=== PATIENT | male | born 1995 | race Caucasian/White ===

== ENCOUNTER 2020-07-25 09:19 | Day surgery (SDC) | payer OTHER ==
[2020-07-25] MEDS ORDERED: ceFAZolin 2 GM/50 ML 2 GM/50 ML BAG IV ONE (09:25)
[2020-07-25] MEDS ORDERED: LACTATED RINGERS 1,000 ML IV ONE ×2 (09:27→11:54)
[2020-07-25] MEDS ORDERED: EPINEPHrine 1 MG/ML AMP ONE (09:39)
[2020-07-25] MEDS ORDERED: BUPIVACAINE 0.25% PF 10 ML VIAL ONE (09:39)
[2020-07-25] MEDS ORDERED: LIDOCAINE-MPF 2% 5 ML VIAL ONE (09:45)
[2020-07-25] MEDS ORDERED: PROPOFOL 200 MG/20 ML VIAL IVP ONE (09:45)
[2020-07-25] MEDS ORDERED: DEXAMETHASONE 4 MG/ML VIAL ONE (09:48)
[2020-07-25] MEDS ORDERED: KETOROLAC 30 MG/ML VIAL ONE (09:48)
[2020-07-25] MEDS ORDERED: ONDANSETRON 4 MG/2 ML VIAL ONE (09:48)
--- NOTE | 2020-07-25 10:02 | ANESTHESIA ---
Pre-Anesthesia VS, & Labs - Diagnosis left knee meniscus tear - Procedure Left knee arthroscopy Vital Signs: Temp Pulse Resp BP Pulse Ox 36.8 C 51 L 14 129/73 99 07/25/20 09:40 07/25/20 09:40 07/25/20 09:40 07/25/20 09:40 07/25/20 09:40 Height: 5 ft 8 in Weight (kg): 91.6 kg Body Mass Index: 30.7 BMI Classification: Obese - NPO >8 hours - Lab Results Lab results reviewed: Yes Home Medications and Allergies Home Medications: Ambulatory Orders No Known Home Medications 07/19/20 No Known Home Medications 07/19/20 Allergies/Adverse Reactions: Allergies Allergy/AdvReac Type Severity Reaction Status Date / Time No Known Drug Allergies Allergy Verified 07/19/20 16:18 Anes History & Medical History - Anesthetic History Anesthesia Complications: reports: No previous complications Family history of Anesthesia Complications: Denies Family history of Malignant Hyperthermia: Denies - Medical History Cardiovascular: reports: None Pulmonary: reports: None Gastrointestinal: reports: None Urinary: reports: None Musculoskeletal: reports: Other Endocrine/Autoimmune: reports: None Skin: reports: None Smoking Status: Former smoker (quit vaping 2 months ago, quit smoking 6 months ago) Exam General: Alert, Oriented x3, Cooperative, No acute distress Dental: WNL, Other (some chipped teeth) Mouth and Teeth Image: 1 - chipped Mouth Openin Fingerbreadth Neck Mobility: Normal Mallampati classification: I Respiratory: Lungs clear, Normal breath sounds, No respiratory distress, No accessory muscle use Cardiovascular: Regular rate, Normal S1, Normal S2, No murmurs Plan Anesthesia Type: General Consent for Procedure(s) Verified and Reviewed: No Code Status: Attempt Resuscitation ASA classification: 1-Healthy patient Is this case an emergency?: No
[2020-07-25] MEDS ORDERED: MIDAZOLAM 2 MG/2 ML VIAL ONE (10:24)
[2020-07-25] MEDS ORDERED: fentaNYL 100 MCG/2 ML VIAL ONE (10:25)
[2020-07-25] MEDS ORDERED: BUPIVACAINE 0.25% PF 10 ML VIAL SUBQ ONE ×2 (10:52)
[2020-07-25] MEDS ORDERED: EPINEPHrine 1 MG/ML AMP IR ONE (10:52)
[2020-07-25] MEDS ORDERED: HYDROmorphone 0.5 MG/0.5 ML SYRINGE IVP PRN (11:12)
[2020-07-25] MEDS ORDERED: MORPHINE 2 MG/ML CARPUJECT IVP PRN (11:12)
[2020-07-25] MEDS ORDERED: ONDANSETRON 4 MG/2 ML VIAL IVP PRN ×2 (11:12→11:51)
[2020-07-25] MEDS ORDERED: METOCLOPRAMIDE 10 MG/2 ML VIAL IVP PRN (11:12)
[2020-07-25] MEDS ORDERED: ePHEDrine 50 MG/ML VIAL IVP PRN (11:12)
[2020-07-25] MEDS ORDERED: ATROPINE ABBOJECT 1 MG/10 ML SYRINGE IVP PRN (11:12)
[2020-07-25] MEDS ORDERED: NALOXONE 0.4 MG/ML VIAL IVP PRN (11:12)
[2020-07-25] MEDS ORDERED: fentaNYL 100 MCG/2 ML VIAL IVP PRN (11:12)
[2020-07-25] MEDS ORDERED: oxyCODONE 5 MG TABLET PO PRN (11:51)
[2020-07-25] MEDS ORDERED: LACTATED RINGERS 1,000 ML IV SCH (12:00)
--- NOTE | 2020-07-25 12:03 | OPERATIVE REPORT ---
Operative Report - Other Other Information/Narrative: Date of Surgery: 25 July 2020 Pre-Op Diagnosis: Left knee lateral meniscus tear Procedure: Left knee lateral meniscus debridement. Lateral femoral condyle chondroplasty. Lateral tibial plateau chondroplasty Postop Diagnosis: Left lateral meniscus tear -irrepairable, lateral femoral condyle cartilage lesion, lateral tibial plateau cartilage lesion Primary Surgeon: Jesse Jarvis Secondary Surgeon: None Complications: None Tourniquet Time: 46 minutes EBL: 5 cc Indication For Surgery: 24-year-old male started having mechanical symptoms and pain in the lateral knee 1 year ago while stationed with the [employer]. He does not remember a specific incident or a popping sensation. Work-up revealed a displaced lateral meniscus tear that was flipped into the notch. We discussed the biology behind meniscus healing and the chronicity of this making it u nlikely that it will be repairable. He desired to move forward with debridement to improve his symptoms. The risks, benefits, and alternatives were discussed. Risks include pain, bleeding, infection, damage to nearby structures and cartilage, lack of symptom relief, need for further surgery, DVT, PE, stroke, and . Written consent was obtained. Examination Under Anesthesia: ROM equal to the contralateral side except 15 degrees less of flexion. Stable dial at 30 & 90 degrees. Stable to varus and valgus stressing at 0 & 30 degrees. Normal Barbara. Normal Pivot shift. No mechanical sensation Arthroscopic Findings: Loose bodies -none Synovium -normal Patella cartilage -normal Trochlear cartilage -normal Medial femoral condyle cartilage -normal Medial tibial plateau cartilage -normal Medial meniscus -normal Anterior cruciate ligament -very mild fraying on the femoral side with a ligament overall looked very healthy. I think this fraying came from the meniscus pressing against it but it does not represent any functional tear Posterior cruciate ligament -normal Lateral femoral condyle cartilage -there was a 5 mm wide by 15 mm long partial- thickness cartilage lesion on the lateral aspect of the lateral femoral condyle and the portion of the knee that articulates in deep flexion. The remainder of the cartilage looked excellent Lateral tibial plateau cartilage -there is diffuse grade 2 and grade 3 changes within the plateau focused more laterally than medially Lateral meniscus -large bucket-handle meniscus tear that was flipped into the notch. It was chronic. The tear was reducible however the quality of the tissue was very poor and a repair was not likely to heal appropriately. I therefore performed a subtotal lateral meniscectomy Procedure in Detail: The patient was met in the pre-operative hold area on the day of the procedure. The operative extremity was signed and questions were answered. The patient was brought to the operating room and a general anesthetic was administered. Supine position was used and bony prominences were padded. An examination under anesthesia was performed. Standard prepping and draping was performed. A time out confirmed patient identification, laterality, procedure, allergies, antibiotics, and images. An Esmarch was used to exsanguinate the limb and the tourniquet was elevated to 250 mmHg. A standard diagnostic arthroscopy of the knee was performed through anterolateral and anteromedial portal sites. The anteromedial portal was created under direct visualization after localizing with a spinal needle. The findings can be found above. I then proceeded to reduce the lateral meniscus and assess it very carefully. The tissue did not have any bleeding and it was a very low quality and that it was shredding with my probe. It was my assessment that this tear is unlikely to heal with the repair especially not in the setting of an ACL. I made the decision to excise the meniscus and I did so with a biter and a shaver ensuring to smooth out the edges at the transition points. The lateral root was intact. Final images were taken and all arthroscopic fluid and instruments were removed from the knee. The incisions were closed with buried monocryl sutures. Steri strips were applied. 10 cc of 0.25% Marcaine without epinephrine was injected near the portal sites. A sterile dressing and Da wrap were placed. The patient was awakened and transferred to recovery in stable condition.
--- NOTE | 2020-07-25 12:37 | ANESTHESIA POST OP EVALUATION ---
Anesthesia Post Eval - Post Anesthesia Eval Vitals: Last Vital Signs Temp 36.8 C 07/25/20 12:12 Pulse 55 L 07/25/20 12:12 Resp 14 07/25/20 12:12 BP 138/89 H 07/25/20 12:12 Pulse Ox 100 07/25/20 12:12 CV Function Including HR & BP: positive: Stable Pain Control: positive: Satisfactory Nausea & Vomiting: positive: Negative Mental Status: positive: Baseline Respiratory Status: Airway Patent Hydration Status: Satisfactory Anesthesia Complications: positive: None
[2020-07-25 12:47] VITALS: BP 137/87
== END 2020-07-25 09:20 | disposition home or self-care (01) ==
LOC: SDS 09:19
PROVIDERS: ATTEND Orthopaedic Surgery
DX: M23.262 Derangement of other lateral meniscus due to old tear or injury, left knee (principal); E66.9 Obesity, unspecified; Z68.30 Body mass index [BMI] 30.0-30.9, adult
CPT/HCPCS: 29881; J0690; J7120